=== PATIENT | female | born 1955 | race Caucasian/White ===

== ENCOUNTER → 2018-09-02 | Outpatient (CLI) | payer OTHER ==
[~2018-09-02] MED LIST: Amlodipine Bes2.5 MG PO; B Complex #11 EACH PO; DHEA; DHEA 10 MG TAB1 EACH PO; DHEA PO; Divigel0.5 MG TOP; ESTROGEN PATCH; Femring1 EAC1 VG; Flonase 0.05% N16 GM; Flonase 0.05% N16 GM INH; Lysine1000 MG PO; MICROZIDE12.5 MG PO; PRAV20 PO; PROP10; RISE5; Synthroid112 MCG PO; VITAMIN D32000 UNIT PO
[2018-09-07 18:06] LABS: HPV 16 Negative (Negative); HPV 18 Negative (Negative); HPV OTHER HR TYPES Negative (Negative)
== END | disposition home or self-care (01) ==
LOC: LAB SHORT 19:02 → LAB 19:02
PROVIDERS: Obstetrics & Gynecology Gynecology
DX: Z12.72 Encounter for screening for malignant neoplasm of vagina (principal)
CPT/HCPCS: 87624; G0123

== ENCOUNTER → 2018-10-01 | Outpatient (CLI) | payer OTHER ==
[2018-10-01 14:42] LABS: BASOPHILS ABSOLUTE AUTO 0.02 K/mm3 (0.00-0.23); BASOPHILS PERCENT AUTO 0 % (0-2); EOSINOPHILS ABSOLUTE AUTO 0.01 K/mm3 (0.00-0.68); EOSINOPHILS PERCENT AUTO 0 % (0-6); Hematocrit 43.8 % (33.0-51.0); Hemoglobin 15.1 g/dL (11.5-16.0); IMMATURE GRAN ABSOLUTE AUTO 0.01 K/mm3 (0.00-0.10); IMMATURE GRAN PERCENT AUTO 0 % (0-1); LYMPHOCYTES ABSOLUTE AUTO 1.64 K/mm3 (0.84-5.20); LYMPHOCYTES PERCENT AUTO 24 % (21-46); MONOCYTES ABSOLUTE AUTO 0.76 K/mm3 (0.16-1.47); MONOCYTES PERCENT AUTO 11 % (4-13); Mean Corpuscular HGB 31.5 pg (26.0-34.0); Mean Corpuscular HGB Conc 34.5 g/dL (31.5-36.5); Mean Corpuscular Volume 91 fL (80-100); Mean Platelet Volume 9.1 fL (9.1-12.4); NEUTROPHILS ABSOLUTE AUTO 4.29 K/mm3 (1.96-9.15); NEUTROPHILS PERCENT AUTO 64 % (41-73); Platelet Count 203 K/mm3 (150-400); RDW Coefficient Variation 16.1 % (11.7-14.2); RDW Standard Deviation 54.7 fL (35.1-46.3); Red Blood Cell Count 4.79 M/mm3 (3.80-5.20); White Blood Cell Count 6.73 K/mm3 (4.00-11.30)
[2018-10-01 14:52] LABS: Anion Gap 11 mmol/L (6-16); Blood Urea Nitrogen 20 mg/dL (8-24); Bun/Creatinine Ratio 22.5 (12.0-20.0); CO2, Blood 26 mmol/L (21-32); Calcium, Blood 8.5 mg/dL (8.5-10.1); Chloride, Blood 102 mmol/L (98-108); Creatinine, Blood 0.89 mg/dL (0.40-1.00); Glomerular Filtration Rate >60 (60-); Glucose, Blood 92 mg/dL (70-99); Potassium, Blood 3.1 mmol/L (3.5-5.5); Sodium, Blood 139 mmol/L (136-145)
[2018-10-01 14:55] LABS: Troponin I <0.017 ng/mL (0.000-0.040)
== END | disposition home or self-care (01) ==
LOC: LAB SHORT 14:35 → LAB EV 14:35
PROVIDERS: Physician Assistant Surgical
DX: R07.81 Pleurodynia (principal)
CPT/HCPCS: 80048; 84484; 85025

== ENCOUNTER → 2019-05-13 | Outpatient (CLI) | payer OTHER | END | disposition home or self-care (01) | LOC: LAB SHORT 15:37 → LAB EV 15:37 | DX: R30.0 Dysuria (principal) | CPT/HCPCS: 87086 ==

== ENCOUNTER → 2019-06-09 | Outpatient (CLI) | payer OTHER | END | disposition home or self-care (01) | LOC: LAB SHORT 18:01 → LAB EV 18:01 | DX: N39.0 Urinary tract infection, site not specified (principal) | CPT/HCPCS: 87086 ==

== ENCOUNTER 2022-02-16 16:56 | Emergency (ER) | payer MEDICARE, OTHER ==
[~2022-02-16] VITALS: Ht 152.4 cm; Wt 59.0 kg
[2022-02-16 18:01] LABS: BASOPHILS ABSOLUTE AUTO 0.02 K/mm3 (0.00-0.23); BASOPHILS PERCENT AUTO 0 % (0-2); EOSINOPHILS ABSOLUTE AUTO 0.05 K/mm3 (0.00-0.68); EOSINOPHILS PERCENT AUTO 1 % (0-6); Hematocrit 43.3 % (33.0-51.0); Hemoglobin 14.9 g/dL (11.5-16.0); IMMATURE GRAN ABSOLUTE AUTO 0.01 K/mm3 (0.00-0.10); IMMATURE GRAN PERCENT AUTO 0 % (0-1); LYMPHOCYTES ABSOLUTE AUTO 2.19 K/mm3 (0.84-5.20); LYMPHOCYTES PERCENT AUTO 48 % (21-46); MONOCYTES ABSOLUTE AUTO 0.45 K/mm3 (0.16-1.47); MONOCYTES PERCENT AUTO 10 % (4-13); Mean Corpuscular HGB 31.5 pg (26.0-34.0); Mean Corpuscular HGB Conc 34.4 g/dL (31.5-36.5); Mean Corpuscular Volume 92 fL (80-100); NEUTROPHILS ABSOLUTE AUTO 1.86 K/mm3 (1.96-9.15); NEUTROPHILS PERCENT AUTO 41 % (41-73); Platelet Count 257 K/mm3 (150-400); RDW Coefficient Variation 12.7 % (11.7-14.2); RDW Standard Deviation 43.2 fL (35.1-46.3); Red Blood Cell Count 4.73 M/mm3 (3.80-5.20); White Blood Cell Count 4.58 K/mm3 (4.00-11.30)
[2022-02-16 18:40] LABS: Albumin, Blood 3.5 g/dL (3.4-5.0); Albumin/Globulin Ratio 0.8 (0.8-1.8); Bilirubin, Total 0.6 mg/dL (0.1-1.0); Bun/Creatinine Ratio 25.7 (12.0-20.0); Calcium, Blood 9.6 mg/dL (8.5-10.1); Creatinine, Blood 0.74 mg/dL (0.40-1.00); Globulin, Blood 4.2 g/dL (2.2-4.0); Potassium, Blood 3.3 mmol/L (3.5-5.5); Total Protein, Blood 7.7 g/dL (6.4-8.2)
[2022-02-16] MEDS ORDERED: NEURONTIN300 MG PO (21:52)
[2022-02-16] MEDS ORDERED: DIAZEPAM2 M2 PO (21:54)
[2022-02-16] MEDS ORDERED: KLOR-CON 1010 ME8 PO (21:54)
[2022-02-16] MEDS ORDERED: ESTRADIOL ACETATE (21:55)
[2022-02-17] MEDS ORDERED: PROMETHAZINE12.5 M2 PO (01:19)
== END 2022-02-17 01:19 | disposition home or self-care (01) ==
LOC: ER 16:56
PROVIDERS: Physician Assistant
DX: U07.1 COVID-19 (principal); E78.5 Hyperlipidemia, unspecified; I10 Essential (primary) hypertension; E89.0 Postprocedural hypothyroidism; Z79.899 Other long term (current) drug therapy; Z88.5 Allergy status to narcotic agent; Z88.2 Allergy status to sulfonamides; Z88.8 Allergy status to other drugs, medicaments and biological substances; Z91.040 Latex allergy status
CPT/HCPCS: 36415; 71045; 80053; 84484; 85025; 93005; 93010; J2550; J7030

== ENCOUNTER 2023-12-18 14:34 | Observation (INO) | payer MEDICARE ==
[~2023-12-18] VITALS: Ht 152.4 cm; Wt 53.7 kg
[~2023-12-18 14:34] MED LIST changes: +DIAZEPAM2 M2 PO; +ESTRADIOL ACETATE; +Enoxaparin 40 MG/0.4 ML SYR SC SCH; +K-Dur20 MEQ; +LEVSOD75 PO; +NEURONTIN300 MG PO; +PROMETHAZINE12.5 M2 PO; -Synthroid112 MCG PO
[2023-12-18 15:04] LABS: BASOPHILS ABSOLUTE AUTO 0.07 K/mm3 (0.00-0.23); BASOPHILS PERCENT AUTO 1 % (0-2); EOSINOPHILS ABSOLUTE AUTO 0.21 K/mm3 (0.00-0.68); EOSINOPHILS PERCENT AUTO 3 % (0-6); Hematocrit 47.8 % (33.0-51.0); Hemoglobin 16.7 g/dL (11.5-16.0); IMMATURE GRAN ABSOLUTE AUTO 0.01 K/mm3 (0.00-0.10); IMMATURE GRAN PERCENT AUTO 0 % (0-1); LYMPHOCYTES ABSOLUTE AUTO 3.45 K/mm3 (0.84-5.20); LYMPHOCYTES PERCENT AUTO 42 % (21-46); MONOCYTES ABSOLUTE AUTO 0.57 K/mm3 (0.16-1.47); MONOCYTES PERCENT AUTO 7 % (4-13); Mean Corpuscular HGB Conc 34.9 g/dL (31.5-36.5); Mean Corpuscular Volume 86 fL (80-100); Mean Platelet Volume 8.6 fL (9.1-12.4); NEUTROPHILS ABSOLUTE AUTO 3.88 K/mm3 (1.96-9.15); NEUTROPHILS PERCENT AUTO 47 % (41-73); Platelet Count 346 K/mm3 (150-400); RDW Coefficient Variation 13.8 % (11.7-14.2); RDW Standard Deviation 43.2 fL (35.1-46.3); Red Blood Cell Count 5.56 M/mm3 (3.80-5.20); White Blood Cell Count 8.19 K/mm3 (4.00-11.30)
[2023-12-18 15:10] LABS: Calcium, Ionized (POC) 1.08 mmol/L (1.10-1.46); Chloride (POC) 99 mmol/L (98-108); Glucose (ISTAT POC) 132 mg/dL (70-99); Hemoglobin (POC) 16.3 g/dL (12.0-16.0); Potassium (POC) 3.4 mmol/L (3.5-5.5); Sodium (POC) 137 mmol/L (135-148); Total CO2 (POC) 25 mmol/L (21-32)
[2023-12-18] MEDS ORDERED: Nitroglycerin 0.4 MG SUBL ONE (15:11)
[2023-12-18] MEDS ORDERED: Nitroglycerin 0.4 MG SUBL SL ONE (15:15)
[2023-12-18] MEDS ORDERED: NS 1,000 ML IV SCH (15:15)
[2023-12-18 15:20] LABS: Albumin, Blood 4.2 g/dL (3.4-5.0); Albumin/Globulin Ratio 0.9 (0.8-1.8); Bilirubin, Total 0.6 mg/dL (0.1-1.0); Bun/Creatinine Ratio 17.5 (12.0-20.0); Calcium, Blood 10.3 mg/dL (8.5-10.1); Creatinine, Blood 0.86 mg/dL (0.40-1.00); Globulin, Blood 4.5 g/dL (2.2-4.0); Total Protein, Blood 8.7 g/dL (6.4-8.2)
[2023-12-18] MEDS ORDERED: Aspirin 325 MG Tab PO ONE (15:35)
[2023-12-18] MEDS ORDERED: Nitroglycerin 0.4 MG SUBL SL PRN ×2 (15:35→23:15)
[2023-12-18] MEDS ORDERED: Ondansetron HCl 2 MG / ML 2ML Vial IV ONE ×2 (15:40→18:15)
[2023-12-18] MEDS ORDERED: Potassium Chloride 20 MEQ TabCR PO ONE (16:40)
[2023-12-18] MEDS ORDERED: LORazepam 2 MG/ML 1ML Injection IV ONE (18:05)
[2023-12-18] MEDS ORDERED: NS 1,000 ML IV ONE (23:15)
[2023-12-18] MEDS ORDERED: Ondansetron HCl 2 MG / ML 2ML Vial IV PRN (23:15)
[2023-12-18] MEDS ORDERED: Acetaminophen 325 MG TABLET PO PRN (23:15)
[2023-12-18] MEDS ORDERED: FentaNYL Citrate 50 MCG/ML 2 ML Injection IV PRN (23:15)
[2023-12-18] MEDS ORDERED: Pantoprazole Sodium 40 MG Injection IV SCH (23:37)
[2023-12-18] MEDS ORDERED: Mag Sulfate 1 GM/D5% 100ML 100 ML IV STA (23:40)
[2023-12-18] MEDS ORDERED: Mag Hydrox/Al Hydrox/Simeth 72 ML,Lidocaine 2% Viscous Soln 36 ML,Atropine/Scopalam/Hyo... PO PRN (23:40)
[2023-12-18 23:50] VITALS: BP 136/80
[2023-12-19 05:00] VITALS: BP 125/64
[2023-12-19 07:24] VITALS: BP 122/63
[2023-12-19] MEDS ORDERED: ATOR10 PO (07:26)
[2023-12-19] MEDS ORDERED: ALLEGRA ALLERG180 MG PO (07:26)
[2023-12-19 08:21] LABS: BASOPHILS ABSOLUTE AUTO 0.04 K/mm3 (0.00-0.23); BASOPHILS PERCENT AUTO 1 % (0-2); EOSINOPHILS ABSOLUTE AUTO 0.27 K/mm3 (0.00-0.68); EOSINOPHILS PERCENT AUTO 5 % (0-6); Hematocrit 41.7 % (33.0-51.0); Hemoglobin 14.5 g/dL (11.5-16.0); IMMATURE GRAN ABSOLUTE AUTO 0.02 K/mm3 (0.00-0.10); IMMATURE GRAN PERCENT AUTO 0 % (0-1); LYMPHOCYTES ABSOLUTE AUTO 2.58 K/mm3 (0.84-5.20); LYMPHOCYTES PERCENT AUTO 44 % (21-46); MONOCYTES ABSOLUTE AUTO 0.63 K/mm3 (0.16-1.47); MONOCYTES PERCENT AUTO 11 % (4-13); Mean Corpuscular HGB 30.3 pg (26.0-34.0); Mean Corpuscular HGB Conc 34.8 g/dL (31.5-36.5); Mean Corpuscular Volume 87 fL (80-100); Mean Platelet Volume 8.8 fL (9.1-12.4); NEUTROPHILS ABSOLUTE AUTO 2.39 K/mm3 (1.96-9.15); NEUTROPHILS PERCENT AUTO 40 % (41-73); Platelet Count 294 K/mm3 (150-400); RDW Coefficient Variation 14.2 % (11.7-14.2); RDW Standard Deviation 44.8 fL (35.1-46.3); Red Blood Cell Count 4.79 M/mm3 (3.80-5.20); White Blood Cell Count 5.93 K/mm3 (4.00-11.30)
[2023-12-19 08:55] LABS: Albumin, Blood 3.3 g/dL (3.4-5.0); Albumin/Globulin Ratio 0.9 (0.8-1.8); Bilirubin, Total 0.8 mg/dL (0.1-1.0); Bun/Creatinine Ratio 14.3 (12.0-20.0); Calcium, Blood 8.8 mg/dL (8.5-10.1); Creatinine, Blood 0.91 mg/dL (0.40-1.00); Globulin, Blood 3.5 g/dL (2.2-4.0); Potassium, Blood 2.7 mmol/L (3.5-5.5); Total Protein, Blood 6.8 g/dL (6.4-8.2)
[2023-12-19] MEDS ORDERED: Potassium Chloride 20 MEQ TabCR PO SCH ×2 (09:00→10:00)
--- NOTE | 2023-12-19 09:48 | NUR ---
Pt. is awake in bed when she welcomes my visit. Spouse is at bedside. Pt. displays evidence of discomfort. Facilitate a review of the Pts. condition and admission. Pt. displays evidence of exhaustion so this jigsawyer keeps the visit short. Prayed for Pt. Pt. verbalized gratitude for the spiritual care visit. Will remain available to Pt. and Spouse.
--- NOTE | 2023-12-19 15:02 | NUR ---
"Spiritual Care | Pt./Nurse Request Pt. is awake in bed when she welcomes my visit. No visitors are present, but the Pt. displays evidence of exhaustion. Facilitate a discussion of the Pts. understanding of her most recent diagnosis. Pt. verbalizes that Dr. Meléndez believes she may have experienced a stroke. Pt. also verbalizes that this diagnosis causes some fear for her. Consider matters of adrianne and belief as well as strategies to manage her ability to rest. Pt. displays evidence of understanding and agreement. Prayed with Pt. Pt. verbalizes gratitude for the spiritual care visit and this multi slide machine tender requests the door to be closed so she can rest."
[2023-12-19 15:32] VITALS: BP 139/73
[2023-12-19 19:11] VITALS: BP 138/78
--- NOTE | 2023-12-19 19:57 | NUR ---
REPORT RECEIVED VERIFIED. NO CARDIAC ISSUES WITH PT TODAY, PT HAD MULTIPLE CARDIAC TESTS AND SO FAR HAVE BEEN NEGITIVE, NOT ADDITIONAL CP NOTED, FAMILY AT THE BEDSIDE, PT HAD FIRST PART OF STRESS TEST TODAY AND WILL FINISH IN THE AM. REPORT GIVEN
[2023-12-20 03:02] VITALS: BP 136/78
--- NOTE | 2023-12-20 05:13 | NUR ---
SHIFT SUMMARY PATIENT IS A&O X4. PT WAS MADE NPO AT MIDNIGHT FOR STRESS TEST HAPPENING ON THE MORNING OF 12/19. PT ALSO HAS ORDERS FOR AN MRI OF THE HEAD DUE TO RIGHT-SIDED WEAKNESS. PT SLEPT THROUGHOUT THE NIGHT. HER BREATHING WAS EVEN AND UNLABORED WITH EVEN CHEST RISE AND FALL. PT STATES SHE HAS INTERMITTENT MILD EPIGASTRIC PAIN.
--- NOTE | 2023-12-20 06:26 | NUR ---
HOME MEDICATIONS I HAVE MADE THIS PATIENT'S HOME MEDICATIONS AT LEAST VISIBLE TO THE HOSPITALIST AT THIS TIME.
[2023-12-20 07:28] VITALS: BP 119/76
[2023-12-20] MEDS ORDERED: Regadenoson 0.4 MG/5 ML SYRINGE ONE (08:01)
[2023-12-20] MEDS ORDERED: Aminophylline 250MG / 10ML 10 ML Vial ONE (08:01)
[2023-12-20] MEDS ORDERED: LORazepam 0.5 MG Tab PO ONE (10:00)
[2023-12-20] MEDS ORDERED: Mag Hydrox/AL Hydrox/Simeth 30 ML UDC PO ONE (13:55)
[2023-12-20] MEDS ORDERED: Acetaminophen 160MG / 5ML 10.15 UDC PO ONE (14:00)
[2023-12-20 14:04] VITALS: BP 144/73
[2023-12-20] MEDS ORDERED: Promethazine HCl 25 MG Tab PO PRN (14:15)
[2023-12-20] MEDS ORDERED: Diazepam 2 MG Tab PO ONE (14:15)
[2023-12-20] MEDS ORDERED: Levothyroxine Sodium 0.075 MG Tab PO SCH (14:43)
[2023-12-20 15:39] VITALS: BP 140/73
[2023-12-20 15:55] LABS: Bun/Creatinine Ratio 14.6 (12.0-20.0); Calcium, Blood 9.1 mg/dL (8.5-10.1); Creatinine, Blood 0.75 mg/dL (0.40-1.00); Potassium, Blood 2.9 mmol/L (3.5-5.5)
[2023-12-20 16:27] LABS: Thyroid Stimulating Hormone 4.72 uIU/mL (0.360-4.800)
[2023-12-20] MEDS ORDERED: Potassium Chloride 20 MEQ TabCR PO SCH (17:00)
[2023-12-20] MEDS ORDERED: NS 250 ML IV PRN (17:40)
[2023-12-20] MEDS ORDERED: Potassium Chloride 40 MEQ in NS 250 ML IV ONE ×2 (17:40→19:50)
--- NOTE | 2023-12-20 19:17 | NUR ---
REPORT RECEIVED VERIFIED, PT A/O AND READY FOR STRESS TEST. 0800 INJECTION DONE AND PT EATING BREAKFAST. 0900 PT TAKEN TO STRESS TEST . 1000 PT BACK IN , DAWN TEST WELL, TRANSPORT SAID SHE CRYIED THE WHOLE TIME AND THAT MAYBE SHE WOULD NEED SOMETHING TO HELP HER RELAX FOR CT. ATIVAN GIVEN FOR CT [id number] PT TAKEN DOWN. 1130 PT BACK AND APPARENTLY CRIED DURING TEST. 1200 PT EATING LUNCH AND POSSIBLY HAVING MRI TODAY, IN TO SPEAK WITH PT. 1400 PT COMPLAINING OF ABD PAIN WONT OPEN EYES AND IS CURLED UP IN THE BED. VSS MONITOR WNL, PT REFUSING MEDS AT THIS MOMENT. LAB WAS REFUSED BUT EVENTUALLY WAS ABLE TO DRW BLOOD. K+ WAS LOW AND IS CURRENTLY BEING REPLACED IV BECAUSE PO K+ NOT DAWN.
[2023-12-20] MEDS ORDERED: Mag Hydrox/AL Hydrox/Simeth 30 ML UDC PO PRN (20:15)
[2023-12-20 20:42] VITALS: BP 141/86
[2023-12-20] MEDS ORDERED: BusPIRone HCl 5 MG Tab PO SCH (21:00)
[2023-12-20] MEDS ORDERED: Atorvastatin 10 MG Tab PO SCH (21:00)
[2023-12-20] MEDS ORDERED: Gabapentin 300 MG Cap PO SCH (21:00)
--- NOTE | 2023-12-21 04:22 | NUR ---
SHIFT SUMMARY PT STATED SHE FELT ANXIOUS AND COMPLAINED OF EPIGASTRIC PAIN AND NAUSEA. PT WAS GIVEN OATMEAL AND ZOFRAN PER EMAR. PT'S LIGHTS WERE DIMMED AT THIS TIME TO HELP WITH OVERSTIMULATION. PT GIVEN IV POTASSIUM PER THE EMAR. PT STATED HER ANXIETY AND NAUSEA RESOLVED. PT SLEPT THROUGHOUT THE NIGHT. HER BREATHING WAS EVEN AND UNLABORED.
[2023-12-21 04:29] VITALS: BP 115/76
--- NOTE | 2023-12-21 04:38 | NUR ---
CTA/MODELING ANALYST I HAVE READ THIS STUDENT'S DOCUMENTATION. SHIFT SUMMARY LOCATED IN MODELING ANALYST NOTES
[2023-12-21 05:28] LABS: BASOPHILS ABSOLUTE AUTO 0.04 K/mm3 (0.00-0.23); BASOPHILS PERCENT AUTO 1 % (0-2); EOSINOPHILS ABSOLUTE AUTO 0.41 K/mm3 (0.00-0.68); EOSINOPHILS PERCENT AUTO 6 % (0-6); Hematocrit 42.2 % (33.0-51.0); Hemoglobin 14.2 g/dL (11.5-16.0); IMMATURE GRAN ABSOLUTE AUTO 0.01 K/mm3 (0.00-0.10); IMMATURE GRAN PERCENT AUTO 0 % (0-1); LYMPHOCYTES ABSOLUTE AUTO 3.79 K/mm3 (0.84-5.20); LYMPHOCYTES PERCENT AUTO 53 % (21-46); MONOCYTES ABSOLUTE AUTO 0.64 K/mm3 (0.16-1.47); MONOCYTES PERCENT AUTO 9 % (4-13); Mean Corpuscular HGB 29.8 pg (26.0-34.0); Mean Corpuscular HGB Conc 33.6 g/dL (31.5-36.5); Mean Corpuscular Volume 89 fL (80-100); Mean Platelet Volume 8.8 fL (9.1-12.4); NEUTROPHILS ABSOLUTE AUTO 2.21 K/mm3 (1.96-9.15); NEUTROPHILS PERCENT AUTO 31 % (41-73); Platelet Count 278 K/mm3 (150-400); RDW Coefficient Variation 14.5 % (11.7-14.2); RDW Standard Deviation 46.9 fL (35.1-46.3); Red Blood Cell Count 4.76 M/mm3 (3.80-5.20)
[2023-12-21] MEDS ORDERED: Levothyroxine Sodium 0.075 MG Tab PO SCH (06:00)
[2023-12-21 06:07] LABS: Albumin, Blood 2.9 g/dL (3.4-5.0); Albumin/Globulin Ratio 0.9 (0.8-1.8); Bilirubin, Total 0.7 mg/dL (0.1-1.0); Bun/Creatinine Ratio 14.8 (12.0-20.0); Calcium, Blood 8.5 mg/dL (8.5-10.1); Creatinine, Blood 0.75 mg/dL (0.40-1.00); Globulin, Blood 3.4 g/dL (2.2-4.0); Potassium, Blood 4.2 mmol/L (3.5-5.5); Total Protein, Blood 6.3 g/dL (6.4-8.2)
[2023-12-21 07:27] VITALS: BP 114/73
--- NOTE | 2023-12-21 07:42 | NUR ---
A/O DOING MUCH BETTER THIS MORNING, MINIMAL PAIN, LABS IN ORDER. PT STILL ON THE FENCE ABOUT DOING THE MRI.
[2023-12-21] MEDS ORDERED: Fluticasone 0.05% Nasal Spray SCH (09:00)
[2023-12-21] MEDS ORDERED: Cholecalciferol 1000 Unit Tablet (=25MCG) PO SCH (09:00)
[2023-12-21] MEDS ORDERED: Loratadine 10 MG Tab PO SCH (09:00)
[2023-12-21] MEDS ORDERED: Vitamin B Complex 1 EA Softgel PO SCH (09:00)
[2023-12-21] MEDS ORDERED: Acetaminophen 325 MG TABLET PO PRN (09:55)
[2023-12-21] MEDS ORDERED: BUSP5 PO (10:48)
--- NOTE | 2023-12-21 12:53 | NUR ---
A/O X 4 DOING MUCH BETTER TODAY. READY TO GO HOME DR INTO SEE PT AND DISCHARGE. 1230 PT DISCHARGED, INSTRUCTIONS GIVEN AND IV DCED.
== END 2023-12-21 12:25 | disposition home or self-care (01) ==
LOC: ER 14:34 → MEDS 14:35 → ENPENDDIS 12-21 11:32 → MEDS 12-21 12:25
PROVIDERS: Internal Medicine; Student in an Organized Health Care Education/Training Program; ADMIT Internal Medicine
DX: R07.89 Other chest pain (principal); R53.1 Weakness; R73.03 Prediabetes; G47.00 Insomnia, unspecified; E87.6 Hypokalemia; L40.9 Psoriasis, unspecified; I35.0 Nonrheumatic aortic (valve) stenosis; I10 Essential (primary) hypertension; E78.5 Hyperlipidemia, unspecified; E03.9 Hypothyroidism, unspecified; Z88.2 Allergy status to sulfonamides; Z88.5 Allergy status to narcotic agent; Z88.8 Allergy status to other drugs, medicaments and biological substances; Z79.899 Other long term (current) drug therapy
CPT/HCPCS: 36415; 70450; 71046; 71275; 74174; 78452; 80047; 80048; 80053; 83690; 83735; 83880; 84443; 84484; 85014; 85025; 85379; 93005; 93010; 93017; 93306; 96361; 96365; 96366; 96372; 96374-59; 96375; 96376; 96376-59; 97110; 97161; 99285-25; A9270; A9500; C9113; G0378; J0280; J1650; J2060; J2405; J2785; J3475; J3480; J7030; J7050; Q9967